=== PATIENT | female | born 1975 | race Two or more races ===

== ENCOUNTER 2017-03-15 06:19 | Day surgery (SDC) | payer MEDICAID, OTHER ==
[~2017-03-15] VITALS: Ht 152.4 cm; Wt 76.1 kg
[2017-03-15 06:48] VITALS: Ht 152.4 cm; Wt 76.1 kg
[2017-03-15] MEDS ORDERED: SUCR1TAB56 PO (06:58)
[2017-03-15] MEDS ORDERED: OMEP40CA6 PO (06:58)
[2017-03-15 07:13] VITALS: BP 124/76; PULSE 56; RESP 16
[2017-03-15] MEDS ORDERED: FENTAnyl 50 MCG/ML VIAL ONE (07:38)
[2017-03-15] MEDS ORDERED: MIDAZOLAM 1 MG/ML 2 ML INJ ONE ×2 (07:38)
--- NOTE | 2017-03-15 08:10 | GILP ---
DATE OF PROCEDURE: 03/15/2017 NAME OF PROCEDURE: Esophagogastroduodenoscopy and biopsy. SURGEON: Fransisco Navarro MD. PREOPERATIVE DIAGNOSES: 1. Abdominal pain. 2. Chronic heartburn. POSTOPERATIVE DIAGNOSES: 1. Gastroesophageal reflux disease. 2. Gastritis. 3. Gastric mucosal biopsies were taken for Helicobacter pylori test. INDICATION FOR THE PROCEDURE: Ms. Sakina Vasquez is a 42-year-old female patient who had upper abdomina l pain and chronic heartburn, not responding to therapy. The patient was scheduled for endoscopic e xamination for further evaluation. The procedure and possible complications were well explained to the patient. The patient understood and consented to the procedure. DESCRIPTION OF PROCEDURE: Under the influence of fentanyl and Versed, the gastroscope was carefully introduced into the esophagus and under direct vision, it was advanced to the stomach and through t he pylorus into the duodenal bulb and descending duodenum. FINDINGS: ESOPHAGUS: The patient had gastroesophageal reflux disease. STOMACH: She had gastritis. Gastric mucosal biopsies were taken for H. pylori test. DUODENUM: Normal. She tolerated the procedure very well and there was no complication from the procedure. At the end of the procedure, she was awake with stable vital signs and she was discharged home to the care of h family. IMPRESSION: Please see postoperative diagnosis. PLAN: 1. Continue omeprazole 40 mg p.o. q.a.m. 2. Add Zantac 300 mg p.o. at bedtime. 3. Await H. pylori test report. Dictated By: FRANSISCO STRICKLAND/MAKI Conf#: [id number] DID#: [id number]
== END 2017-03-15 10:33 | disposition home or self-care (01) ==
LOC: GIL 06:19
PROVIDERS: ATTEND Internal Medicine Gastroenterology
DX: K21.9 Gastro-esophageal reflux disease without esophagitis (principal); K29.70 Gastritis, unspecified, without bleeding
CPT/HCPCS: 43239; 84702; 87081; J2250; J3010; Z7610

== ENCOUNTER 2017-11-24 05:52 | Emergency (ER) | END 2017-11-24 07:59 | disposition home or self-care (01) ==